=== PATIENT | male | born 1940 | race Caucasian/White ===

== ENCOUNTER 2018-08-09 02:21 | Inpatient (IN) | payer OTHER ==
[2018-08-09 03:04] LABS: ABNORMAL IP MESSAGE 1; HEMATOCRIT 45.8 % (42.0-52.0); HEMOGLOBIN 15.8 g/dl (14.0-18.0); MEAN CORPUSCULAR HEMOGLOBIN 34.4 pg (29.0-33.0); MEAN CORPUSCULAR HGB CONC 34.5 g/dl (32.0-37.0); MEAN CORPUSCULAR VOLUME 99.8 fl (82.0-101.0); MEAN PLATELET VOLUME 9.4 fl (7.4-10.4); NUCLEATED RED BLOOD CELLS% 0.3 /100WBC (0.0-0.0); PLATELET COUNT 211 10^3/UL (140-415); POSITIVE DIFF @See below; RED BLOOD COUNT 4.59 10^6/ul (4.70-6.10); RED CELL DISTRIBUTION WIDTH 13.4 % (11.5-14.5)
[2018-08-09 03:04] LABS: WHITE BLOOD COUNT 7.6 10^3/ul (4.8-10.8)
[2018-08-09 03:21] LABS: ANION GAP 15 (5-13); BLOOD UREA NITROGEN 21 mg/dl (7-20); CALCIUM 9.5 mg/dl (8.4-10.2); CARBON DIOXIDE 21 mmol/L (21-31); CHLORIDE 104 mmol/L (97-110); CREATININE 1.58 mg/dl (0.61-1.24); GLUCOSE 228 mg/dl (70-220); POTASSIUM 3.8 mmol/L (3.5-5.1); SODIUM 140 mmol/L (135-144)
[2018-08-09 03:24] LABS: ADD MAN DIFF? YES
[2018-08-09 03:32] LABS: B-TYPE NATRIURETIC PEPTIDE 5860 PG/ML (0-450); TROPONIN-I < 0.012 ng/ml (0.000-0.120)
[2018-08-09] MEDS: DILTIAZEM 25 MG INJ IV ×2 (03:41→19:57)
[2018-08-09] MEDS: DILTIAZEM-D5W 125MG/125ML DRIP 125 ML IV ×2 (03:42→07:44)
[2018-08-09 05:05] LABS: ANISOCYTOSIS 1+ (0-0); BAND NEUTROPHILS #M 0.1 10^3/ul (0.0-0.6); BAND NEUTROPHILS % (M) 2 % (0-4); BASOPHILS % (M) 1 % (0-2); EOSINOPHILS % (M) 3 % (0-7); ERYTHROBLAST% (NRBC) (M) 2 % (0-0); GIANT THROMBO% (M) 1 % (0-0); LYMPHOCYTES #M 1.2 10^3/ul (0.8-2.9); LYMPHOCYTES % (M) 16 % (15-51); MONOCYTE #M 0.3 10^3/ul (0.3-0.9); MONOCYTES % (M) 5 % (0-11); PLATELET ESTIMATE NORMAL; POLYCHROMASIA 1+ (0-0); SEG NEUT #M 5.6 10^3/ul (1.6-7.5); SEGMENTED NEUTROPHILS (M) % 73 % (39-77); SMUDGE%M 33 % (0-0)
[2018-08-09] MEDS ORDERED: ONDANSETRON 4 MG INJ IV ×2 (05:30→06:00)
[2018-08-09] MEDS ORDERED: ACETAMINOPHEN 325 MG TAB PO ×2 (05:30→06:00)
[2018-08-09] MEDS ORDERED: NACL 0.9% 3 ML SYG IV (06:00)
[2018-08-09] MEDS ORDERED: DOCUSATE SODIUM 100 MG CAP PO (06:00)
[2018-08-09] MEDS ORDERED: BISACODYL (EC) 5 MG TAB PO (06:00)
[2018-08-09 06:40] LABS: INR 2.04; PROTIME 23.1 Sec (11.9-14.9); PT RATIO 1.8
[2018-08-09 06:41] LABS: PARTIAL THROMBOPLASTIN TIME 39.4 Sec (23.0-35.0)
[2018-08-09 06:49] LABS: CHOLESTEROL 168 mg/dl (100-200)
[2018-08-09 06:49] LABS: CHOL/HDL RATIO 4.9 RATIO; HDL CHOLESTEROL 34 mg/dl (31-75); LDL CHOLESTEROL,CALCULATED 94 mg/dl; TRIGLYCERIDES 199 mg/dl (0-149)
[2018-08-09 06:55] LABS: DIGOXIN 0.7 ng/ml (1.0-2.0)
[2018-08-09 08:10] LABS: HEMOGLOBIN A1C 6.6 % (0-5.9)
[2018-08-09] MEDS ORDERED: ENOXAPARIN 40 MG/0.4 ML SYG SC (09:00)
[2018-08-09 09:10] LABS: CREATINE KINASE 129 IU/L (23-200)
[2018-08-09 09:24] LABS: CK INDEX 0.5; CK-MB 0.68 ng/ml (0.0-2.4); TROPONIN-I < 0.012 ng/ml (0.000-0.120)
[2018-08-09] MEDS ORDERED: METOPROLOL 50 MG TAB PO (12:00)
[2018-08-09] MEDS: DILTIAZEM (CD) 240 MG CAP PO (12:24)
[2018-08-09] MEDS: DIGOXIN 0.125 MG TAB PO (13:25)
[2018-08-09 15:33] LABS: CREATINE KINASE 172 IU/L (23-200)
[2018-08-09 15:45] LABS: CK INDEX 0.6; TROPONIN-I < 0.012 ng/ml (0.000-0.120)
[2018-08-09] MEDS: WARFARIN 5 MG TAB PO (17:31)
[2018-08-09] MEDS ORDERED: METOPROLOL 100 MG TAB (19:49)
[2018-08-09] MEDS: METOPROLOL 100 MG TAB PO (20:02)
[2018-08-09] MEDS: ALPRAZOLAM 1 MG TAB PO (20:47)
[2018-08-10] MEDS ORDERED: DEXTROSE 50% 50 ML SYRINGE IV ×2 (01:30)
[2018-08-10] MEDS ORDERED: GLUCAGON 1 MG INJ IM (01:30)
[2018-08-10] MEDS ORDERED: GLUCOSE GEL 15 GRAM TUBE PO ×2 (01:30)
[2018-08-10] MEDS ORDERED: GLUCOSE GEL 15 GRAM TUBE BUCCAL (01:30)
[2018-08-10 06:09] LABS: ADD MAN DIFF? NO
[2018-08-10 06:18] LABS: BASOPHIL # 0.1 10^3/ul (0.0-0.1); BASOPHILS % 1.3 % (0.0-2.0); EOSINOPHILS # 0.2 10^3/ul (0.0-0.5); EOSINOPHILS % 3.2 % (0.0-7.0); HEMATOCRIT 44.4 % (42.0-52.0); HEMOGLOBIN 15.4 g/dl (14.0-18.0); LYMPHOCYTES % 16.1 % (15.0-51.0); MEAN CORPUSCULAR HEMOGLOBIN 35.3 pg (29.0-33.0); MEAN CORPUSCULAR HGB CONC 34.7 g/dl (32.0-37.0); MEAN CORPUSCULAR VOLUME 101.8 fl (82.0-101.0); MEAN PLATELET VOLUME 10.6 fl (7.4-10.4); MONOCYTE # 0.6 10^3/ul (0.3-0.9); MONOCYTES % 10.1 % (0.0-11.0); NEUTROPHIL # 4.1 10^3/ul (1.6-7.5); NEUTROPHILS % 68.8 % (39.0-77.0); PLATELET COUNT 182 10^3/UL (140-415); RED BLOOD COUNT 4.36 10^6/ul (4.70-6.10); RED CELL DISTRIBUTION WIDTH 13.9 % (11.5-14.5)
[2018-08-10 06:29] LABS: INR 1.81; PROTIME 21.1 Sec (11.9-14.9); PT RATIO 1.6
[2018-08-10 06:49] LABS: ALANINE AMINOTRANSFERASE 12 IU/L (13-69); ALBUMIN 3.8 g/dl (3.3-4.9); ALBUMIN/GLOBULIN RATIO 1.11; ALKALINE PHOSPHATASE 57 IU/L (42-121); ANION GAP 14 (5-13); ASPARTATE AMINO TRANSFERASE 44 IU/L (15-46); BILIRUBIN,INDIRECT 1.1 mg/dl (0-1.1); BILIRUBIN,TOTAL 1.1 mg/dl (0.2-1.3); BLOOD UREA NITROGEN 25 mg/dl (7-20); CALCIUM 8.7 mg/dl (8.4-10.2); CARBON DIOXIDE 21 mmol/L (21-31); CHLORIDE 103 mmol/L (97-110); CREATININE 1.41 mg/dl (0.61-1.24); GLUCOSE 155 mg/dl (70-220); MAGNESIUM 2.1 mg/dl (1.7-2.5); POTASSIUM 4.7 mmol/L (3.5-5.1); SODIUM 138 mmol/L (135-144); TOTAL PROTEIN 7.2 g/dl (6.1-8.1)
[2018-08-10] MEDS: DILTIAZEM (CD) 240 MG CAP PO (08:04)
[2018-08-10] MEDS: METOPROLOL 100 MG TAB PO ×2 (08:04→20:08)
[2018-08-10] MEDS: DILTIAZEM 25 MG INJ IV (08:05)
[2018-08-10] MEDS: INSULIN ASPART [NOVOLOG] 3 ML PEN SC ×4 (08:32→20:05)
[2018-08-10] MEDS: DILTIAZEM (CD) 120 MG CAP PO (10:35)
[2018-08-10] MEDS: DIGOXIN 0.125 MG TAB PO (11:50)
[2018-08-10] MEDS: WARFARIN 5 MG TAB PO (16:56)
[2018-08-11] MEDS ORDERED: DILTIAZEM (CD) 180 MG CAP PO (09:00)
== END 2018-08-10 20:28 | disposition home health service (06) | DRG 74 ==
LOC: E/R 02:21 → 6WM 05:31
DX: G62.9 Polyneuropathy, unspecified (principal); I48.2 Chronic atrial fibrillation; I12.9 Hypertensive chronic kidney disease with stage 1 through stage 4 chronic kidney disease, or unspecified chronic kidney disease; N18.9 Chronic kidney disease, unspecified; E78.1 Pure hyperglyceridemia; E11.22 Type 2 diabetes mellitus with diabetic chronic kidney disease; Z79.01 Long term (current) use of anticoagulants; Z87.891 Personal history of nicotine dependence
CPT/HCPCS: 36415; 71045; 72131; 80048; 80053; 80061; 80162; 82550; 82553; 82962; 83036; 83735; 83880; 84443; 84484; 85025; 85610; 85730; 93005; 93306; 93970; 96365; 96366; 96375; 97164; 99291-25

== ENCOUNTER 2018-08-25 12:06 | Inpatient (IN) | payer OTHER ==
[2018-08-25] MEDS: SOD CHLORIDE 0.9% 1,000 ML IV (12:24)
[2018-08-25] MEDS: DILTIAZEM 25 MG INJ IV ×2 (12:24→15:43)
[2018-08-25] MEDS ORDERED: ONDANSETRON 4 MG INJ IV ×2 (12:30→13:00)
[2018-08-25] MEDS ORDERED: ACETAMINOPHEN 325 MG TAB PO (12:30)
[2018-08-25] MEDS: DILTIAZEM 30 MG TAB PO (12:45)
[2018-08-25 12:52] LABS: ADD MAN DIFF? NO
[2018-08-25 12:54] LABS: WHITE BLOOD COUNT 11.6 10^3/ul (4.8-10.8)
[2018-08-25 12:54] LABS: ABNORMAL IP MESSAGE 1; BASOPHILS % 0.3 % (0.0-2.0); EOSINOPHILS % 0.3 % (0.0-7.0); HEMATOCRIT 43.9 % (42.0-52.0); HEMOGLOBIN 15.2 g/dl (14.0-18.0); LYMPHOCYTES # 0.7 10^3/ul (0.8-2.9); MEAN CORPUSCULAR HEMOGLOBIN 34.9 pg (29.0-33.0); MEAN CORPUSCULAR HGB CONC 34.6 g/dl (32.0-37.0); MEAN CORPUSCULAR VOLUME 100.7 fl (82.0-101.0); MEAN PLATELET VOLUME 9.7 fl (7.4-10.4); MONOCYTE # 1.2 10^3/ul (0.3-0.9); MONOCYTES % 10.4 % (0.0-11.0); NEUTROPHIL # 9.6 10^3/ul (1.6-7.5); NEUTROPHILS % 82.7 % (39.0-77.0); PLATELET COUNT 195 10^3/UL (140-415); POSITIVE DIFF @See below; RED BLOOD COUNT 4.36 10^6/ul (4.70-6.10); RED CELL DISTRIBUTION WIDTH 13.7 % (11.5-14.5)
[2018-08-25] MEDS ORDERED: NACL 0.9% 3 ML SYG IV (13:00)
[2018-08-25] MEDS ORDERED: NITROGLYCERIN (SL) 0.4 MG TAB SL (13:00)
[2018-08-25] MEDS ORDERED: morphine 2 MG INJ IV (13:00)
[2018-08-25] MEDS ORDERED: DOCUSATE SODIUM 100 MG CAP PO (13:00)
[2018-08-25] MEDS ORDERED: LORAZEPAM 2 MG INJ IV (13:00)
[2018-08-25] MEDS ORDERED: hydrALAzine 20 MG INJ IV (13:00)
[2018-08-25] MEDS ORDERED: HYDROCODONE/APAP (5/325) TAB PO (13:00)
[2018-08-25] MEDS ORDERED: MAGNESIUM HYDROXIDE 30ML CUP PO (13:00)
[2018-08-25] MEDS ORDERED: ALBUTEROL/IPRATROPIUM (NEB) 3 ML AMP HHN (13:00)
[2018-08-25 13:11] LABS: PROTIME 23.6 Sec (11.9-14.9); PT RATIO 1.8
[2018-08-25 13:12] LABS: PARTIAL THROMBOPLASTIN TIME 31.6 Sec (23.0-35.0)
[2018-08-25 13:17] LABS: ANION GAP 13 (5-13); BLOOD UREA NITROGEN 26 mg/dl (7-20); CALCIUM 9.4 mg/dl (8.4-10.2); CARBON DIOXIDE 21 mmol/L (21-31); CHLORIDE 106 mmol/L (97-110); CREATININE 2.17 mg/dl (0.61-1.24); GLUCOSE 172 mg/dl (70-220); POTASSIUM 3.9 mmol/L (3.5-5.1); SODIUM 140 mmol/L (135-144)
[2018-08-25 13:26] LABS: TROPONIN-I 0.034 ng/ml (0.000-0.120)
[2018-08-25] MEDS: DIGOXIN 0.125 MG TAB PO (13:30)
[2018-08-25] MEDS: GABAPENTIN 100 MG CAP PO ×2 (13:30→21:17)
[2018-08-25] MEDS: LORAZEPAM 2 MG INJ IV (16:26)
[2018-08-25] MEDS ORDERED: GLUCAGON 1 MG INJ IM (17:00)
[2018-08-25] MEDS ORDERED: GLUCOSE GEL 15 GRAM TUBE PO ×2 (17:00)
[2018-08-25] MEDS ORDERED: GLUCOSE GEL 15 GRAM TUBE BUCCAL (17:00)
[2018-08-25] MEDS ORDERED: DEXTROSE 50% 50 ML SYRINGE IV ×2 (17:00)
[2018-08-25] MEDS: WARFARIN 5 MG TAB PO (17:54)
[2018-08-25] MEDS ORDERED: DILTIAZEM 25 MG INJ (18:53)
[2018-08-25] MEDS: DILTIAZEM-D5W 125MG/125ML DRIP 125 ML IV (19:06)
[2018-08-25 19:09] LABS: CREATINE KINASE 1152 IU/L (23-200)
[2018-08-25] MEDS: HALOPERIDOL 5 MG INJ IM (19:11)
[2018-08-25 19:19] LABS: TROPONIN-I 0.044 ng/ml (0.000-0.120)
[2018-08-25 20:26] LABS: FREE T4 (FREE THYROXINE) 1.85 ng/dl (0.78-2.44)
[2018-08-25] MEDS: INSULIN ASPART [NOVOLOG] 3 ML PEN SC (21:00)
[2018-08-25] MEDS: METOPROLOL 100 MG TAB PO (21:17)
[2018-08-26] MEDS: INSULIN ASPART [NOVOLOG] 3 ML PEN SC ×6 (01:00→20:02)
[2018-08-26 01:33] LABS: CREATINE KINASE 933 IU/L (23-200)
[2018-08-26 01:46] LABS: CK INDEX 0.9; TROPONIN-I 0.046 ng/ml (0.000-0.120)
[2018-08-26] MEDS ORDERED: ACCU-CHEK XX (02:00)
[2018-08-26] MEDS: DEXTROSE 5%-0.45% NACL 1,000 ML IV ×2 (06:37→19:50)
[2018-08-26 06:50] LABS: ADD MAN DIFF? NO
[2018-08-26 06:54] LABS: BASOPHIL # 0.2 10^3/ul (0.0-0.1); BASOPHILS % 2.7 % (0.0-2.0); EOSINOPHILS # 0.1 10^3/ul (0.0-0.5); EOSINOPHILS % 1.9 % (0.0-7.0); HEMATOCRIT 42.3 % (42.0-52.0); HEMOGLOBIN 14.2 g/dl (14.0-18.0); LYMPHOCYTES # 0.7 10^3/ul (0.8-2.9); LYMPHOCYTES % 9.8 % (15.0-51.0); MEAN CORPUSCULAR HEMOGLOBIN 34.5 pg (29.0-33.0); MEAN CORPUSCULAR HGB CONC 33.6 g/dl (32.0-37.0); MEAN CORPUSCULAR VOLUME 102.9 fl (82.0-101.0); MEAN PLATELET VOLUME 10.1 fl (7.4-10.4); MONOCYTE # 0.7 10^3/ul (0.3-0.9); MONOCYTES % 9.4 % (0.0-11.0); NEUTROPHIL # 5.7 10^3/ul (1.6-7.5); NEUTROPHILS % 75.7 % (39.0-77.0); PLATELET COUNT 165 10^3/UL (140-415); RED BLOOD COUNT 4.11 10^6/ul (4.70-6.10); RED CELL DISTRIBUTION WIDTH 13.9 % (11.5-14.5)
[2018-08-26 06:54] LABS: WHITE BLOOD COUNT 7.5 10^3/ul (4.8-10.8)
[2018-08-26 07:11] LABS: INR 2.13; PROTIME 23.9 Sec (11.9-14.9); PT RATIO 1.9
[2018-08-26 07:16] LABS: ANION GAP 9 (5-13); BLOOD UREA NITROGEN 19 mg/dl (7-20); CALCIUM 8.6 mg/dl (8.4-10.2); CARBON DIOXIDE 23 mmol/L (21-31); CHLORIDE 107 mmol/L (97-110); GLUCOSE 119 mg/dl (70-220); MAGNESIUM 2.4 mg/dl (1.7-2.5); PHOSPHORUS 3.2 mg/dl (2.5-4.9); POTASSIUM 3.6 mmol/L (3.5-5.1); SODIUM 139 mmol/L (135-144)
[2018-08-26 07:40] LABS: HEMOGLOBIN A1C 6.4 % (0-5.9)
[2018-08-26 07:47] LABS: CHOLESTEROL 111 mg/dl (100-200)
[2018-08-26 07:47] LABS: CHOL/HDL RATIO 4.1 RATIO; HDL CHOLESTEROL 27 mg/dl (31-75); LDL CHOLESTEROL,CALCULATED 54 mg/dl; TRIGLYCERIDES 152 mg/dl (0-149)
[2018-08-26] MEDS: GABAPENTIN 100 MG CAP PO ×3 (09:11→20:03)
[2018-08-26] MEDS: METOPROLOL 100 MG TAB PO ×2 (09:11→20:04)
[2018-08-26] MEDS: DILTIAZEM (CD) 180 MG CAP PO (09:11)
[2018-08-26] MEDS: FAMOTIDINE 20 MG TAB PO (09:11)
[2018-08-26] MEDS: DIGOXIN 0.125 MG TAB PO (14:18)
[2018-08-26] MEDS: WARFARIN 5 MG TAB PO (18:29)
[2018-08-26] MEDS: ACETAMINOPHEN 325 MG TAB PO (20:04)
[2018-08-27] MEDS: INSULIN ASPART [NOVOLOG] 3 ML PEN SC ×4 (01:00→13:00)
[2018-08-27] MEDS: DEXTROSE 5%-0.45% NACL 1,000 ML IV (04:58)
[2018-08-27 06:41] LABS: ADD MAN DIFF? NO
[2018-08-27 06:45] LABS: BASOPHIL # 0.1 10^3/ul (0.0-0.1); BASOPHILS % 2.2 % (0.0-2.0); EOSINOPHILS # 0.2 10^3/ul (0.0-0.5); EOSINOPHILS % 4.8 % (0.0-7.0); HEMATOCRIT 43.6 % (42.0-52.0); HEMOGLOBIN 14.6 g/dl (14.0-18.0); LYMPHOCYTES # 0.9 10^3/ul (0.8-2.9); LYMPHOCYTES % 17.7 % (15.0-51.0); MEAN CORPUSCULAR HGB CONC 33.5 g/dl (32.0-37.0); MEAN CORPUSCULAR VOLUME 101.4 fl (82.0-101.0); MEAN PLATELET VOLUME 9.9 fl (7.4-10.4); MONOCYTE # 0.5 10^3/ul (0.3-0.9); MONOCYTES % 9.7 % (0.0-11.0); NEUTROPHIL # 3.3 10^3/ul (1.6-7.5); NEUTROPHILS % 65.2 % (39.0-77.0); PLATELET COUNT 171 10^3/UL (140-415); RED CELL DISTRIBUTION WIDTH 13.8 % (11.5-14.5)
[2018-08-27 07:08] LABS: ANION GAP 8 (5-13); BLOOD UREA NITROGEN 14 mg/dl (7-20); CALCIUM 8.8 mg/dl (8.4-10.2); CARBON DIOXIDE 23 mmol/L (21-31); CHLORIDE 109 mmol/L (97-110); CREATININE 1.25 mg/dl (0.61-1.24); GLUCOSE 111 mg/dl (70-220); POTASSIUM 3.8 mmol/L (3.5-5.1); SODIUM 140 mmol/L (135-144)
[2018-08-27] MEDS: METOPROLOL 100 MG TAB PO (08:42)
[2018-08-27] MEDS: DILTIAZEM (CD) 180 MG CAP PO (08:42)
[2018-08-27] MEDS: GABAPENTIN 100 MG CAP PO ×2 (08:42→13:16)
[2018-08-27] MEDS: FAMOTIDINE 20 MG TAB PO (08:42)
[2018-08-27] MEDS: DIGOXIN 0.125 MG TAB PO (13:16)
[2018-08-27] MEDS: WARFARIN 5 MG TAB PO (16:10)
== END 2018-08-27 16:30 | DRG 309 ==
LOC: E/R 12:06 → TEL 12:22
DX: I48.2 Chronic atrial fibrillation (principal); N17.9 Acute kidney failure, unspecified; Z79.01 Long term (current) use of anticoagulants; N18.9 Chronic kidney disease, unspecified; I12.9 Hypertensive chronic kidney disease with stage 1 through stage 4 chronic kidney disease, or unspecified chronic kidney disease; Z87.891 Personal history of nicotine dependence; E78.00 Pure hypercholesterolemia, unspecified
CPT/HCPCS: 36415; 70450; 71045; 80048; 80061; 82550; 82553; 82962; 83036; 83735; 84100; 84439; 84443; 84484; 85025; 85610; 85730; 92610; 93005; 97116; 97162; 97530; 99285-25